=== PATIENT | male | born 1980 | race Two or more races ===

== ENCOUNTER 2018-11-17 22:12 | Emergency (ER) | payer SELFPAY ==
[~2018-11-17] VITALS: Ht 154.9 cm; Wt 60.8 kg
--- NOTE | 2018-11-17 22:15 | NUR ---
[id number] FOR ETOH INTOXICATION, LT EYE ORBIT SWELLING S/P TRIP AND FALL, BLOOD NOTED ON RT 3RD FINGER, NO LOC, FRIENDS CALLED 911, BG 147 IN FIELD. NO S/S OF ACUTE DISTRESS NOTED. NO ACTIVE BLEEDING NOTED. RR EVEN AND UNLABORED. PT PLACED ON BOTTOM FINISHER AND POX. PT SAFETY AND COMFORT MEASURES IN PLACE. BEDSIDE FOR EVAL.
[2018-11-17] MEDS ORDERED: TDAP [DIPH/PERTUSSIS/TET] 0.5 ML VIAL IM ONE (22:30)
--- NOTE | 2018-11-17 22:30 | NUR ---
PT TO CT
--- NOTE | 2018-11-17 22:55 | NUR ---
PT BACK FROM CT
[2018-11-17] MEDS ORDERED: AMOX/CLAVULANATE 875 MG TABLET PO ONE (23:30)
--- NOTE | 2018-11-18 00:33 | NUR ---
Patient is resting comfortably in bed with eyes closed. Easily aroused. VSS
--- NOTE | 2018-11-18 02:30 | NUR ---
Patient is resting comfortably in bed with eyes closed. Easily aroused. NO S/S OF ACUTE DISTRESS NOTED
[2018-11-18] MEDS ORDERED: GELATIN SPONGE,ABSORBABLE 1 SPONGE SPONGE TP ONE ×2 (04:41→05:30)
--- NOTE | 2018-11-18 04:55 | NUR ---
PT RESTING IN BED COMFORTABLY WITH NO S/S OF DISTRESS NOTED
[2018-11-18] MEDS ORDERED: TDAP [DIPH/PERTUSSIS/TET] 0.5 ML VIAL IM ONE (05:19)
[2018-11-18] MEDS ORDERED: AMOX/CLAVULANATE 875 MG TABLET ONE (05:19)
[2018-11-18 06:05] VITALS: BP 131/90
--- NOTE | 2018-11-18 06:05 | NUR ---
Patient discharged to home in stable condition. Written and verbal after care instructions given. Patient verbalizes understanding of instruction. PT AMBULATED OUT WITH STEADY GAIT NOTED
== END 2018-11-18 06:06 | disposition home or self-care (01) ==
LOC: ER 22:16
DX: S02.32XA Fracture of orbital floor, left side, initial encounter for closed fracture (principal); S02.19XA Other fracture of base of skull, initial encounter for closed fracture; S61.303A Unspecified open wound of left middle finger with damage to nail, initial encounter; F10.129 Alcohol abuse with intoxication, unspecified; I10 Essential (primary) hypertension; Z91.018 Allergy to other foods; X58.XXXA Exposure to other specified factors, initial encounter; Y93.89 Activity, other specified; Y92.89 Other specified places as the place of occurrence of the external cause; Y99.8 Other external cause status
CPT/HCPCS: 70450-TC; 70486-TC; 72125-TC; 73130-TC; 90715; A4606; A6402; A6403; Z7610